=== PATIENT | female | born 1995 | race American Indian/Alaskan Native ===

== ENCOUNTER 2017-02-24 08:39 | Emergency (ER) | payer SELFPAY ==
[2017-02-24 08:55] VITALS: BP 111/73
[2017-02-24 09:38] LABS: Basophils % (Auto) 0.6 % (0.0-1.8); Eosinophils % (Auto) 2.5 % (0.0-4.3); Hematocrit 36.8 % (30.3-42.9); Hemoglobin 12.1 gm/dl (10.1-14.3); Mean Corpuscular HGB Conc 33 % (30-34); Mean Corpuscular Hemoglobin 31 pg (28-32); Mean Corpuscular Volume 93 fl (79-97); Platelet Count 230 K/mm3 (140-440); Red Blood Count 3.96 M/mm3 (3.65-5.03); Red Cell Distribution Width 12.3 % (13.2-15.2)
[2017-02-24 09:55] LABS: Bilirubin,Urine NEG (Negative); Blood,Urine NEG (Negative); Ketones,Urine NEG (Negative); Leukocyte Esterase,Urine NEG (Negative); Nitrite,Urine NEG (Negative); Protein,Urine <15 mg/dL mg/dL (Negative); RBC,Urine < 1.0 /HPF (0.0-6.0); Urobilinogen,Urine < 2.0 mg/dL (<2.0)
[2017-02-24 10:00] LABS: Alanine Aminotransferase 9 units/L (7-56); Albumin 4.2 g/dL (3.9-5); Albumin/Globulin Ratio 1.2 %; Alkaline Phosphatase 67 units/L (35-129); BUN/Creatinine Ratio 16; Blood Urea Nitrogen 11 mg/dL (7-17); Calcium 9.2 mg/dL (8.4-10.2); Carbon Dioxide 29 mmol/L (22-30); Glucose 95 mg/dL (65-100); Lipase 29 units/L (13-60); Total Protein 7.6 g/dL (6.3-8.2)
[2017-02-24 10:22] LABS: Anion Gap 15 mmol/L; Chloride 101.4 mmol/L (98-107); Potassium 4.1 mmol/L (3.6-5.0); Sodium 141 mmol/L (137-145)
== END 2017-02-24 19:22 | disposition left against medical advice (07) ==
LOC: ED 08:39
DX: R10.30 Lower abdominal pain, unspecified (principal); Z53.21 Procedure and treatment not carried out due to patient leaving prior to being seen by health care provider
CPT/HCPCS: 36415; 80053; 81001; 83690; 85025

== ENCOUNTER 2018-01-02 09:12 | Outpatient (CLI) | payer MEDICAID ==
[2018-01-02 10:07] VITALS: BP 100/56
[2018-01-02 10:15] LABS: Bilirubin,Urine NEG (Negative); Blood,Urine NEG (Negative); Color,Urine Yellow (Yellow); Mucus,Urine FEW /HPF; Protein,Urine <15 mg/dL mg/dL (Negative); Urobilinogen,Urine < 2.0 mg/dL (<2.0)
[2018-01-02] MEDS ORDERED: LACTATED RINGERS 1,000 ML ONE (10:44)
[2018-01-02] MEDS ORDERED: LACTATED RINGERS 1,000 ML IV ONE (10:54)
[2018-01-02] MEDS ORDERED: TYLENOL PO ONE (11:30)
[2018-01-02] MEDS ORDERED: LACTATED RINGERS 500 ML IV ONE (12:00)
== END 2018-01-02 11:40 | disposition home or self-care (01) ==
LOC: EDSTATUS 09:30 → TRG 09:41
PROVIDERS: ATTEND Obstetrics & Gynecology
DX: O47.02 False labor before 37 completed weeks of gestation, second trimester (principal); Z3A.25 25 weeks gestation of pregnancy
CPT/HCPCS: 59025; 81001; J7120